=== PATIENT | female | born 1960 | race Caucasian/White ===

== ENCOUNTER 2016-04-21 13:08 | Inpatient (IN) | payer MEDICARE, OTHER ==
[~2016-04-21] VITALS: Ht 170.2 cm; Wt 203.2 kg
[~2016-04-21 13:08] MED LIST: ACET325T53 PO; ALBU4TAB4 PO; ALBU6.7H IH; AMIN30LI27 PO; AMOX-430 PO; ASCO500T9 PO; CALC500T3 PO; CELE200C PO; CIPR-262 PO; DABI150C PO; ESCI20TA PO; ESTR-6 PO; FERR325C PO; FLUT16SP2 NS; FLUT1DIS3 IH; FURO40TA5 PO; GABA-786 PO; GUAI5SYR PO; HYDR-3326 PO; HYDR-548 PO; LAMO200T2 PO; LORA-676 PO; METR500T PO; MULT-70 PO; OMEP40CA37 PO; OXYB10TA PO; OXYM30SP3 NS; POTA20TA34 PO; TOPI25TA8 PO; TRAZ-147 PO; VALS80TA2 PO; ZIPR80CA2 PO
[2016-04-21 13:53] LABS: BASOPHILS # (AUTO) 0.1 /CMM (0.0-0.2); BASOPHILS % (AUTO) 1.5 % (0.0-2.0); DIFF TOTAL % 100 %; EOSINOPHILS # (AUTO) 0.4 /CMM (0.0-0.7); EOSINOPHILS % (AUTO) 5.1 % (0.0-6.0); HEMATOCRIT 42 % (33-45); HEMOGLOBIN 13.7 g/dL (11.5-14.8); LYMPHOCYTES # (AUTO) 1.3 /CMM (0.8-4.8); LYMPHOCYTES % (AUTO) 18.7 % (20.0-44.0); MEAN CORPUSCULAR HEMOGLOBIN 29 PG (26.0-33.0); MEAN CORPUSCULAR HGB CONC 32 g/dl (31.0-36.0); MEAN CORPUSCULAR VOLUME 89 fL (82-100); MONOCYTES # (AUTO) 0.4 /CMM (0.1-1.30); MONOCYTES % (AUTO) 5.1 % (2.0-12.0); NEUTROPHILS % (AUTO) 69.6 % (43.0-81.0); PLATELET COUNT (AUTO) 284 /CMM (150-450); RED BLOOD CELL COUNT(AUTO) 4.76 MIL/uL (4.0-5.2); WHITE BLOOD COUNT (AUTO) 7.2 K/uL (4.3-11.0)
[2016-04-21 14:13] LABS: ALANINE AMINOTRANSFERASE 17 U/L (12-78); ALBUMIN 3.5 g/dL (3.4-5.0); ANION GAP 11 (5-14); ASPARTATE AMINOTRANSFERASE 17 U/L (15-37); BILIRUBIN,DIRECT 0.1 mg/dL (0.0-0.2); BILIRUBIN,TOTAL 0.5 mg/dL (0.2-1.0); CALCIUM, SERUM 9.1 mg/dL (8.5-10.1); CARBON DIOXIDE 30 mmol/L (21-32); CHLORIDE 105 mmol/L (98-107); GFR 57 mL/min (>60); GLUCOSE 118 mg/dL (74-106); INDIRECT BILIRUBIN 0.4 mg/dL (0.0-1.1); POTASSIUM 3.9 mmol/L (3.5-5.1); SALICYLATE 2.9 mg/dL (2.8-20.0); SODIUM SERUM 142 mmol/L (136-145); TOTAL PROTEIN, SERUM 7.1 g/dL (6.4-8.2); UREA NITROGEN, BLOOD 16 mg/dL (7-18)
[2016-04-21 14:14] LABS: ACETAMINOPHEN 0 ug/ml (10-30)
[2016-04-21 15:14] LABS: KETONES,URINE NEGATIVE (NEGATIVE); LEUKOCYTE ESTERASE ,URINE 3+ (NEGATIVE)
[2016-04-21 15:28] LABS: ADD UA MICROSCOPIC YES
[2016-04-21 15:37] LABS: PHENCYCLIDINE SCREEN,URINE NEGATIVE (NEGATIVE)
[2016-04-21 15:41] LABS: ADD URINE CULTURE YES; RBC,URINE 21-50 /HPF (0-2); WBC,URINE 21-50 /HPF (0-3)
[2016-04-21 15:42] LABS: CANNABINOID, URINE POSITIVE (NEGATIVE)
[2016-04-21] MEDS ORDERED: DABI75CA3 PO (16:06)
[2016-04-21] MEDS ORDERED: GABA600T2 PO (16:06)
[2016-04-21] MEDS ORDERED: TIZA4TAB4 PO (16:06)
[2016-04-21] MEDS ORDERED: OXYC-34 PO (16:06)
[2016-04-21] MEDS ORDERED: DULO60CA45 PO (16:06)
[2016-04-21] MEDS ORDERED: ARIP30TA PO (16:06)
[2016-04-21] MEDS ORDERED: TOPI50TA21 PO (16:06)
[2016-04-21] MEDS ORDERED: ESOM40CA PO (16:06)
[2016-04-21] MEDS ORDERED: CEFTRIAXONE 1GM BAG (ER ONLY) 1 GM/50 ML PIGGYBACK IV ONE (17:00)
[2016-04-21] MEDS ORDERED: IV SET PRIMARY PUMP SET 1 EA INFUS.SET MC ONE (17:36)
[2016-04-21] MEDS ORDERED: CEFTRIAXONE 1GM BAG (ER ONLY) 50 ML IV ONE (17:36)
[2016-04-21 18:00] VITALS: BP_SYST 136; BP_DIAS 72; BP_DIAS 84
[2016-04-21] MEDS ORDERED: MAGNESIUM HYDROXIDE 30 ML UDC PO PRN (18:00)
[2016-04-21] MEDS ORDERED: ZOLPIDEM TARTRATE 5 MG TABLET PO PRN (18:00)
[2016-04-21] MEDS ORDERED: ONDANSETRON HCL/PF 4 MG/2 ML VIAL IVP PRN (18:00)
[2016-04-21] MEDS ORDERED: MAG HYDROX/AL HYDROX/SIMETH 30 ML UDC PO PRN (18:00)
[2016-04-21] MEDS ORDERED: ACETAMINOPHEN 325 MG TABLET PO PRN (18:00)
[2016-04-21 18:19] VITALS: BP 136/72
[2016-04-21 20:43] VITALS: BP 162/79
[2016-04-21 22:00] VITALS: BP 162/79
[2016-04-21] MEDS: LamoTRIgine 100 MG TABLET PO SCH (22:16)
[2016-04-21] MEDS: GABAPENTIN 300 MG CAPSULE PO SCH (22:16)
[2016-04-21] MEDS: TOPIRAMATE 25 MG TABLET PO SCH (22:16)
[2016-04-21] MEDS: TRAZODONE 50 MG TABLET PO SCH (22:17)
[2016-04-22] MEDS: HYDROCODONE/APAP 5/325MG 1 EACH TABLET PO PRN ×2 (01:30→12:27)
[2016-04-22] MEDS ORDERED: PANTOPRAZOLE 40 MG TABLET.DR PO SCH (07:30)
[2016-04-22 08:00] VITALS: BP 150/70
[2016-04-22 08:15] LABS: CALCIUM, SERUM 8.8 mg/dL (8.5-10.1); PHOSPHORUS 3.6 mg/dL (2.5-4.9); POTASSIUM 3.8 mmol/L (3.5-5.1)
[2016-04-22] MEDS: FLUTICASONE/SALMETEROL DISKUS IH SCH ×2 (08:28→16:37)
[2016-04-22] MEDS: VALSARTAN 80 MG TABLET PO SCH (08:29)
[2016-04-22] MEDS: GABAPENTIN 300 MG CAPSULE PO SCH ×3 (08:29→16:34)
[2016-04-22] MEDS: DULOXETINE HCL 30 MG CAPSULE.DR PO SCH (08:29)
[2016-04-22] MEDS: ARIPIPRAZOLE 5 MG TABLET PO SCH (08:29)
[2016-04-22] MEDS: LamoTRIgine 100 MG TABLET PO SCH ×2 (08:29→16:36)
[2016-04-22] MEDS: FUROSEMIDE 40 MG TABLET PO SCH ×2 (08:29→16:36)
[2016-04-22] MEDS: TOPIRAMATE 25 MG TABLET PO SCH ×2 (08:30→16:36)
[2016-04-22] MEDS: TIZANIDINE HCL 4 MG TABLET PO SCH ×3 (08:30→16:36)
[2016-04-22] MEDS: PANTOPRAZOLE 40 MG TABLET.DR PO SCH (08:30)
[2016-04-22 08:32] LABS: BASOPHILS % (AUTO) 0.6 % (0.0-2.0); DIFF TOTAL % 100 %; EOSINOPHILS # (AUTO) 0.3 /CMM (0.0-0.7); EOSINOPHILS % (AUTO) 4.9 % (0.0-6.0); HEMATOCRIT 39 % (33-45); HEMOGLOBIN 12.8 g/dL (11.5-14.8); LYMPHOCYTES # (AUTO) 1.1 /CMM (0.8-4.8); LYMPHOCYTES % (AUTO) 16.7 % (20.0-44.0); MEAN CORPUSCULAR HEMOGLOBIN 29 PG (26.0-33.0); MEAN CORPUSCULAR HGB CONC 33 g/dl (31.0-36.0); MEAN CORPUSCULAR VOLUME 89 fL (82-100); MONOCYTES # (AUTO) 0.3 /CMM (0.1-1.30); MONOCYTES % (AUTO) 4.7 % (2.0-12.0); NEUTROPHILS # (AUTO) 4.8 /CMM (1.8-8.9); NEUTROPHILS % (AUTO) 73.1 % (43.0-81.0); PLATELET COUNT (AUTO) 259 /CMM (150-450); RED BLOOD CELL COUNT(AUTO) 4.37 MIL/uL (4.0-5.2); WHITE BLOOD COUNT (AUTO) 6.6 K/uL (4.3-11.0)
[2016-04-22] MEDS: DABIGATRAN ETEXILATE MESYLATE 75 MG CAPSULE PO SCH ×2 (08:34→16:35)
[2016-04-22] MEDS: CLOTRIMAZOLE 1% 15 GM TUBE TP SCH ×2 (12:49→16:37)
[2016-04-22 16:00] VITALS: BP 91/54
[2016-04-22] MEDS ORDERED: IV SET PRIMARY PUMP SET 1 EA INFUS.SET MC ONE (16:46)
[2016-04-22] MEDS ORDERED: IV NS 0.9% 250 ML IV ONE (16:46)
[2016-04-22] MEDS ORDERED: SECONDARY IV SET 1 EA INFUS.SET MC ONE (16:46)
[2016-04-22] MEDS ORDERED: CEFTRIAXONE 1 G in IV D5W 50 ML IV SCH ×3 (17:00)
[2016-04-22 22:00] VITALS: BP 91/54
[2016-04-22] MEDS: TRAZODONE 50 MG TABLET PO SCH (22:00)
[2016-04-22] MEDS ORDERED: IV NS 0.9% 1,000 ML ONE (22:15)
[2016-04-22 22:19] LABS: ABG BASE EXCESS 0.3 mmol/L; ABG HCO3 25.5 mmol/L; ABG NOTIFIED BY EG; ABG PCO2 43.5 mmHg (35.0-45.0); ABG PH 7.386 (7.350-7.450); ABG PO2 78.4 mmHg (75.0-100.0); ABG TOTAL HEMOGLOBIN 11.3 G/dL (12.0-16.0); ALLEN TEST Pass; AaDO2 69.9 mmHg; O2Hb 92.2 % (94.0-97.0)
[2016-04-22 22:26] VITALS: BP 99/58
[2016-04-22] MEDS ORDERED: IV NS 0.9% 500 ML IV ONE (22:30)
[2016-04-23 08:00] VITALS: BP 113/58
[2016-04-23] MEDS: HYDROCODONE/APAP 5/325MG 1 EACH TABLET PO PRN ×2 (08:04→21:55)
[2016-04-23] MEDS: PANTOPRAZOLE 40 MG TABLET.DR PO SCH (08:05)
[2016-04-23 08:46] VITALS: BP 113/58
[2016-04-23] MEDS: VALSARTAN 80 MG TABLET PO SCH (09:00)
[2016-04-23] MEDS: Z GUARD REMEDY 2 OZ OINT TP PRN ×2 (09:32→12:29)
[2016-04-23] MEDS: FLUTICASONE/SALMETEROL DISKUS IH SCH ×2 (09:32→17:57)
[2016-04-23] MEDS: DULOXETINE HCL 30 MG CAPSULE.DR PO SCH (09:33)
[2016-04-23] MEDS: FUROSEMIDE 40 MG TABLET PO SCH ×2 (09:33→17:54)
[2016-04-23] MEDS: DABIGATRAN ETEXILATE MESYLATE 75 MG CAPSULE PO SCH ×2 (09:33→17:55)
[2016-04-23] MEDS: GABAPENTIN 300 MG CAPSULE PO SCH ×3 (09:33→17:00)
[2016-04-23] MEDS: ARIPIPRAZOLE 5 MG TABLET PO SCH (09:34)
[2016-04-23] MEDS: LamoTRIgine 100 MG TABLET PO SCH ×2 (09:34→17:53)
[2016-04-23] MEDS: TIZANIDINE HCL 4 MG TABLET PO SCH ×3 (09:41→17:00)
[2016-04-23] MEDS: TOPIRAMATE 25 MG TABLET PO SCH ×2 (09:41→17:54)
[2016-04-23] MEDS: CLOTRIMAZOLE 1% 15 GM TUBE TP SCH ×2 (10:03→18:01)
[2016-04-23] MEDS ORDERED: NEOMY SULF/BACITRAC ZN/POLY 15 GM TUBE TP PRN (13:00)
[2016-04-23 13:40] VITALS: BP 84/48
[2016-04-23 13:45] VITALS: BP 94/51
[2016-04-23 16:00] VITALS: BP 98/52
[2016-04-23 20:00] VITALS: BP 92/45
[2016-04-23] MEDS: MUPIROCIN OINT 2% 22 GM TUBE SCH (21:54)
[2016-04-23] MEDS: TRAZODONE 50 MG TABLET PO SCH (21:55)
[2016-04-24 04:00] VITALS: BP 107/56
[2016-04-24 08:00] VITALS: BP 119/64
[2016-04-24] MEDS: GABAPENTIN 300 MG CAPSULE PO SCH ×3 (09:00→17:00)
[2016-04-24] MEDS: VALSARTAN 80 MG TABLET PO SCH (09:00)
[2016-04-24] MEDS: TIZANIDINE HCL 4 MG TABLET PO SCH ×3 (09:00→17:00)
[2016-04-24] MEDS: ARIPIPRAZOLE 5 MG TABLET PO SCH (09:07)
[2016-04-24] MEDS: FUROSEMIDE 40 MG TABLET PO SCH ×2 (09:08→16:57)
[2016-04-24] MEDS: PANTOPRAZOLE 40 MG TABLET.DR PO SCH (09:08)
[2016-04-24] MEDS: FLUTICASONE/SALMETEROL DISKUS IH SCH ×2 (09:08→17:02)
[2016-04-24] MEDS: LamoTRIgine 100 MG TABLET PO SCH ×2 (09:08→16:57)
[2016-04-24] MEDS: DULOXETINE HCL 30 MG CAPSULE.DR PO SCH (09:08)
[2016-04-24] MEDS: MUPIROCIN OINT 2% 22 GM TUBE SCH ×2 (09:10→20:45)
[2016-04-24] MEDS: DABIGATRAN ETEXILATE MESYLATE 75 MG CAPSULE PO SCH ×2 (09:10→17:01)
[2016-04-24] MEDS: TOPIRAMATE 25 MG TABLET PO SCH ×2 (09:13→16:59)
[2016-04-24] MEDS: CLOTRIMAZOLE 1% 15 GM TUBE TP SCH ×2 (09:20→17:03)
[2016-04-24] MEDS ORDERED: ONDANSETRON HCL 4 MG/5 ML SOLUTION PO PRN (11:30)
[2016-04-24] MEDS: ONDANSETRON 4 MG TAB.RAPDIS SL PRN (14:54)
[2016-04-24] MEDS ORDERED: SECONDARY IV SET 1 EA INFUS.SET MC ONE (15:01)
[2016-04-24] MEDS: PIPERACILLIN /TAZOBACTAM 3.375 G in IV D5W 50 ML IV SCH ×2 (15:01→19:10)
[2016-04-24 16:00] VITALS: BP 130/65
[2016-04-24] MEDS ORDERED: PIPE3.379 IV (16:19)
[2016-04-24] MEDS ORDERED: NITR100C6 PO (16:19)
[2016-04-24] MEDS: HYDROCODONE/APAP 5/325MG 1 EACH TABLET PO PRN (17:09)
[2016-04-24] MEDS: CALCIUM CARBONATE 500 MG TAB.CHEW PO PRN (19:11)
[2016-04-24 20:00] VITALS: BP 120/56
[2016-04-24 20:02] VITALS: BP 120/56
[2016-04-24] MEDS: NITROFURANTOIN/NITROFURAN MAC 100 MG CAPSULE PO SCH (20:46)
[2016-04-24] MEDS: TRAZODONE 50 MG TABLET PO SCH (20:46)
[2016-04-25] MEDS: ONDANSETRON 4 MG TAB.RAPDIS SL PRN (05:05)
[2016-04-25] MEDS: PIPERACILLIN /TAZOBACTAM 3.375 G in IV D5W 50 ML IV SCH ×5 (05:09→17:33)
[2016-04-25] MEDS: CALCIUM CARBONATE 500 MG TAB.CHEW PO PRN (05:48)
[2016-04-25 08:00] VITALS: BP 140/80
[2016-04-25] MEDS: FUROSEMIDE 40 MG TABLET PO SCH ×2 (08:56→16:27)
[2016-04-25] MEDS: VALSARTAN 80 MG TABLET PO SCH (08:56)
[2016-04-25] MEDS: NITROFURANTOIN/NITROFURAN MAC 100 MG CAPSULE PO SCH (08:56)
[2016-04-25] MEDS: ARIPIPRAZOLE 5 MG TABLET PO SCH (08:57)
[2016-04-25] MEDS: GABAPENTIN 300 MG CAPSULE PO SCH ×3 (08:57→16:27)
[2016-04-25] MEDS: TOPIRAMATE 25 MG TABLET PO SCH ×2 (08:57→16:28)
[2016-04-25] MEDS: TIZANIDINE HCL 4 MG TABLET PO SCH ×3 (08:57→16:28)
[2016-04-25] MEDS: DULOXETINE HCL 30 MG CAPSULE.DR PO SCH (08:57)
[2016-04-25] MEDS: FLUTICASONE/SALMETEROL DISKUS IH SCH ×2 (08:58→16:28)
[2016-04-25] MEDS: PANTOPRAZOLE 40 MG TABLET.DR PO SCH (08:58)
[2016-04-25] MEDS: LamoTRIgine 100 MG TABLET PO SCH ×2 (08:58→16:27)
[2016-04-25] MEDS: MUPIROCIN OINT 2% 22 GM TUBE SCH (08:59)
[2016-04-25] MEDS: DABIGATRAN ETEXILATE MESYLATE 75 MG CAPSULE PO SCH ×2 (09:01→16:30)
[2016-04-25] MEDS: CLOTRIMAZOLE 1% 15 GM TUBE TP SCH ×2 (09:04→16:29)
[2016-04-25 16:00] VITALS: BP 96/54
[2016-04-25] MEDS ORDERED: LACTOBACILLUS RHAMNOSUS GG 1 EACH CAP.SPRINK PO SCH (17:00)
== END 2016-04-25 18:30 | DRG 689 ==
LOC: ER 13:10 → MED 17:21
PROVIDERS: ADMIT Internal Medicine; ATTEND Internal Medicine
PROC: 05H533Z Insertion of Infusion Device into Right Subclavian Vein, Percutaneous Approach (ICD-10-PCS; principal; 2016-04-24)
DX: N39.0 Urinary tract infection, site not specified (principal); I50.33 Acute on chronic diastolic (congestive) heart failure; G93.40 Encephalopathy, unspecified; E66.2 Morbid (severe) obesity with alveolar hypoventilation; Z68.45 Body mass index [BMI] 70 or greater, adult; E44.0 Moderate protein-calorie malnutrition; F33.2 Major depressive disorder, recurrent severe without psychotic features; J98.11 Atelectasis; B96.5 Pseudomonas (aeruginosa) (mallei) (pseudomallei) as the cause of diseases classified elsewhere; B95.2 Enterococcus as the cause of diseases classified elsewhere; E78.5 Hyperlipidemia, unspecified; I11.0 Hypertensive heart disease with heart failure; J44.9 Chronic obstructive pulmonary disease, unspecified; J45.909 Unspecified asthma, uncomplicated; K21.9 Gastro-esophageal reflux disease without esophagitis; M19.90 Unspecified osteoarthritis, unspecified site; Z87.891 Personal history of nicotine dependence; G89.4 Chronic pain syndrome; I89.0 Lymphedema, not elsewhere classified; I87.2 Venous insufficiency (chronic) (peripheral); B37.3 Candidiasis of vulva and vagina; I48.91 Unspecified atrial fibrillation; I70.0 Atherosclerosis of aorta; K42.9 Umbilical hernia without obstruction or gangrene; L98.9 Disorder of the skin and subcutaneous tissue, unspecified
CPT/HCPCS: 36415; 36600; 71010-TC; 80048-TC; 80076-TC; 80305; 81000-TC; 82803-TC; 82962-TC; 83605-TC; 83735-TC; 84100-TC; 85025-TC; 87040-TC; 87081-TC; 87086-TC; 87186-TC; 94799-TC; 97001-TC; A4606; G6038-TC; G6039-TC; G6040-TC; J0696; J2405; J2543; J7030; J7040; J7050; J7060; Q0162; Z7610

== ENCOUNTER 2017-06-23 13:07 | Emergency (ER) | payer MEDICARE, OTHER ==
[~2017-06-23] VITALS: Ht 170.2 cm; Wt 172.4 kg
[~2017-06-23 13:07] MED LIST changes: -ACET325T53 PO; -ALBU4TAB4 PO; -ALBU6.7H IH; -AMIN30LI27 PO; -AMOX-430 PO; +ARIP30TA3 PO; -ASCO500T9 PO; -CALC500T3 PO; -CELE200C PO; -CIPR-262 PO; -DABI150C PO; +DABI75CA3 PO; +DULO60CA45 PO; -ESCI20TA PO; +ESOM40CA PO; -ESTR-6 PO; -FERR325C PO; -FLUT16SP2 NS; -GABA-786 PO; +GABA600T2 PO; -GUAI5SYR PO; -HYDR-3326 PO; -HYDR-548 PO; -LORA-676 PO; -METR500T PO; -MULT-70 PO; +NITR100C6 PO; -OMEP40CA37 PO; -OXYB10TA PO; +OXYC-133 PO; -OXYM30SP3 NS; +PIPE3.379 IV; +TIZA4TAB4 PO; -TOPI25TA8 PO; +TOPI50TA24 PO; -ZIPR80CA2 PO
--- NOTE | 2017-06-23 13:15 | NUR ---
[facility] PRIVATE EMS FROM HOME FOR BLOOD IN THE URINE X 2 WKS, PT HAS A PEREZ CATHETER ALREADY. A/OX 4. BREATHING EVEN AND UNLABORED. NO SOB, NAD, VITALS STABLE. SAFETY AND COMFORT MEASURES IN PLACE. AWAITING MD ORDERS.
--- NOTE | 2017-06-23 14:10 | NUR ---
SNOW REMOVER AT BEDSIDE FOR BLOOD DRAW.
--- NOTE | 2017-06-23 14:15 | NUR ---
URINE OBTAINED AND SENT TO LAB.
[2017-06-23 14:16] LABS: BASOPHILS % (AUTO) 0.5 % (0.0-2.0); EOSINOPHILS # (AUTO) 0.9 /CMM (0.0-0.7); EOSINOPHILS % (AUTO) 12.6 % (0.0-6.0); HEMATOCRIT 39 % (33-45); HEMOGLOBIN 12.5 g/dL (11.5-14.8); LYMPHOCYTES # (AUTO) 1.5 /CMM (0.8-4.8); LYMPHOCYTES % (AUTO) 21.8 % (20.0-44.0); MEAN CORPUSCULAR HEMOGLOBIN 26 PG (26.0-33.0); MEAN CORPUSCULAR HGB CONC 32 g/dl (31.0-36.0); MEAN CORPUSCULAR VOLUME 80 fL (82-100); MONOCYTES # (AUTO) 0.3 /CMM (0.1-1.30); NEUTROPHILS # (AUTO) 4.3 /CMM (1.8-8.9); NEUTROPHILS % (AUTO) 60.1 % (43.0-81.0); PLATELET COUNT (AUTO) 361 /CMM (150-450); RDW COEFFICIENT OF VARIATION 16.6 (11.5-15.0)
[2017-06-23 14:25] LABS: CALCIUM, SERUM 9.8 mg/dL (8.5-10.1); CREATININE 0.7 mg/dL (0.6-1.3); POTASSIUM 3.7 mmol/L (3.5-5.1)
[2017-06-23 14:30] LABS: INR 0.98 (0.85-1.15)
[2017-06-23 14:31] LABS: BILIRUBIN,DIRECT 0.1 mg/dL (0.0-0.2); BILIRUBIN,TOTAL 0.4 mg/dL (0.2-1.0)
[2017-06-23 14:33] LABS: APPEARANCE,URINE Cloudy (CLEAR); BILIRUBIN,URINE SMALL (NEGATIVE); BLOOD, URINE Large Ery/uL (NEGATIVE); COLOR,URINE Red (YELLOW); KETONES,URINE Negative (NEGATIVE); LEUKOCYTE ESTERASE ,URINE Large (NEGATIVE); NITRITE, URINE Negative (NEGATIVE); PROTEIN,URINE >=300 mg/dl (NEGATIVE); UGLUCOSE Negative (NEGATIVE); UROBILINOGEN,URINE 0.2 EU/dL (0.2)
[2017-06-23 14:47] LABS: RBC,URINE TOO NUMEROUS TO COUN /HPF (0-2); WBC,URINE 21-50 /HPF (0-3)
[2017-06-23 14:48] LABS: BACTERIA,URINE Moderate /HPF (None Seen); SQUAMOUS EPITHELIAL CELL,UR Few /HPF (None Seen)
--- NOTE | 2017-06-23 15:29 | NUR ---
PEREZ CATH IRRIGATED PER BENINE VILLATORO. NO CLOTS OR CLOGS NOTED. DRAINING WELL. BENNIE VILLATORO INFORMED.
--- NOTE | 2017-06-23 16:04 | NUR ---
CALLED [facility] FOR TRANSPORT ETA OF 1840 WAS GIVEN. TRIP#[id number]
[2017-06-23 17:11] VITALS: BP 137/84
== END 2017-06-23 17:11 | disposition home or self-care (01) ==
LOC: ER 13:08
DX: R31.9 Hematuria, unspecified (principal); D64.9 Anemia, unspecified; E66.01 Morbid (severe) obesity due to excess calories; F41.9 Anxiety disorder, unspecified; I11.0 Hypertensive heart disease with heart failure; I50.9 Heart failure, unspecified; F17.200 Nicotine dependence, unspecified, uncomplicated; J44.9 Chronic obstructive pulmonary disease, unspecified; Z79.01 Long term (current) use of anticoagulants; Z88.5 Allergy status to narcotic agent; Z88.6 Allergy status to analgesic agent; Z88.8 Allergy status to other drugs, medicaments and biological substances
CPT/HCPCS: 36415; 80048-TC; 80076-TC; 81000-TC; 85025-TC; 85730-TC; 87086-TC; 87186-TC; A4217; A4606; Z7610